=== PATIENT | female | born 1985 ===

== ENCOUNTER 2018-04-22 08:11 | Inpatient (IN) | payer MEDICAID, SELFPAY ==
[2016-11-27 10:01] VITALS: BMI 27.1
[~2018-04-22 08:11] MED LIST: Lactated Ringer's 1,000 ML IV ONE; ceFAZolin 1 GM in Sodium Chloride 0.9% 100 ML IVPB ONE
[2018-04-22] MEDS ORDERED: ceFAZolin IV 1 gm in Dextrose 1 GM/50 ML BAG IVPB ONE (08:30)
[2018-04-22 08:33] LABS: BASO % 0.5 % (0.0-2.0); EOS % 0.2 % (0.0-4.0); LYMPH # 1.4 K/uL (1.0-4.3); LYMPH % 15.3 % (20.0-40.0); MEAN CORPUSCULAR HEMOGLOBIN 28.9 pg (27.0-31.0); MEAN CORPUSCULAR HGB CONC 34.3 g/dL (33.0-37.0); MONO # 0.6 K/uL (0.0-0.8); MONO % 6.9 % (0.0-10.0); NEUT % 77.1 % (50.0-75.0); NRBC % 0.1 % (0.0-0.0); RBC 4.51 Mil/uL (3.80-5.20); WHITE BLOOD COUNT 9.1 K/uL (4.8-10.8)
[2018-04-22 08:34] LABS: MEAN CELL VOLUME 84.1 fl (81.0-99.0)
[2018-04-22] MEDS ORDERED: Oxytocin 30 UNIT 30 UNITS/500 ML BAG IV ONE (09:00)
[2018-04-22] MEDS ORDERED: OXYTOCIN/0.9 % NS 20 UNIT/1,000 ML BAG IV ONE (09:00)
[2018-04-22] MEDS ORDERED: Morphine 1 mg/ml preservative-free Inj(Duramorph) ONE (09:49)
[2018-04-22] MEDS ORDERED: ePHEDrine 50 mg/ml Inj ONE (10:03)
[2018-04-22] MEDS ORDERED: Phenylephrine 10 mg/ml Inj ONE (10:03)
[2018-04-22] MEDS ORDERED: Naloxone 0.4 mg/ml Inj (Adult) IVP PRN ×2 (10:52→14:19)
--- NOTE | 2018-04-22 11:37 | OBDS ---
DELIVERY PERSONNEL Delivery Doctor: Fabiola Griggs MD Scrub Nurse: Tricia Mejia Traffic Superintendent: Taylor Michael RN Anesthesiologist: Dr Davenport I MATERNAL INFORMATION Delivery Anesthesia: Spinal Medications in Delivery: Pitoin, ancef Placenta Cultured: No Maternal Complications: None Provider Comments: see operative report LABOR SUMMARY EDC: 04/29/2018 00:00 No. Babies in Womb: 1 Attempted: No Labor Anesthesia: Intrathecal LABOR INFORMATION Reason for Induction: Not Applicable Oxytocin: N/A Group B Beta Strep: Negative Steroids Given: None Reason Steroids Not Administered: Not Applicable MEMBRANES Membranes Rupture Method: Artificial Rupture of Membranes: 04/22/2018 10:33 Length of Rupture (hrs): 0.00 Amniotic Fluid Color: Clear Amniotic Fluid Amount: Moderate Amniotic Fluid Odor: None STAGES OF LABOR Stage 3 hrs: 0 Stage 3 min: 0 CSECTION DELIVERY Primary Indication: Repeat Elective Secondary Indication: Repeat Elective CSection Urgency: Elective CSection Incidence: Repeat Labor: No Labor Elective: Elective CSection Incision: Lower Uterine Transverse BABY A INFORMATION Infant Delivery Date/Time: 04/22/2018 10:33 Method of Delivery: Born in Route : No : N/A Forceps: N/A Vacuum Extraction: N/A Shoulder Dystocia : No SHOULDER DYSTOCIA BABY A Delivery Date/Time: 04/22/2018 10:33 PRESENTATION/POSITION BABY A Presentation: Cephalic Cephalic Presentation: Vertex Breech Presentation: N/A PLACENTA INFORMATION BABY A Placenta Delivery Time : 04/22/2018 10:33 Placenta Method of Delivery: Manual Removal Placenta Status: Delivered SCORES BABY A Heart Rate 1 min: >100 bpm Resp Effort 1 min: Good Cry Reflex Irritability 1 min: Cough or Sneeze or Pulls Away Muscle Tone 1 min: Active Motion Color 1 min: Body [place], Extremities Blue Resuscitation Effort 1 min: N/A SCORE 1 MIN: 9 Heart Rate 5 min: >100 bpm Resp Effort 5 min: Good Cry Reflex Irritability 5 min: Cough or Sneeze or Pulls Away Muscle Tone 5 min: Active Motion Color 5 min: Body [place], Extremities Blue Resuscitation Effort 5 min: N/A SCORE 5 MIN: 9 INFORMATION BABY A Gestational Age at Delivery: 39.0 Gestational Status: Term Outcome : Liveborn Infant Condition : Stable Sex: Male IDENTIFICATION/MEDS BABY A ID Band Number: [id number] ID Band Location: Left Leg; Left Arm WEIGHT/LENGTH BABY A Infant Birthweight (gms): 3680 Infant Weight (lb): 8 Infant Weight (oz): 2 CORD INFORMATION BABY A No. Cord Vessels: 3 Nuchal Cord : N/A Cord Blood Taken: Yes Suction: None ASSESSMENT BABY A Infant Complications: None Physical Findings at Delivery: Within Normal Limits Respirations: Appears Normal Filling Mixer/ALS Called : Yes Care By: Dr Dr Conrad Transferred To: Remains with Mother
--- NOTE | 2018-04-22 11:50 | OBADHP ---
Datetime: 04/22/2018 08:00 Admit Comment, IP Provider: 32-year-old at 39.0 weeks (confirmed with first tri U/S and LMP 08/01/17) presents for a scheduled repeat section. Her first resulted in a full-ter m C/S due to GDM at 38 weeks in 2009 which she tolerated well and recovered from without complication s (baby 8 lbs). Patient also has gestational DM this , controlled with diet and Metforming 5 00 BID. She reports good movement and denies contractions, veginal bleeding and loss of fluid. She recieved her prentatal care at [facility] [place]. Mother present bedside, will accompan y her in OR. OBHx: 2010 C/S at [facility] 38 wks d/t GDM, no complications, (baby weighed 8lbs) PMH: gestational DM - currently controlled with Metformin 500 BID and diet, sugar levels reviewed and WNL (morning levels roughly 100-110) Meds: Metformin 500mg BID - did not take morning of presentation for CS Allergies: denies FHx: denies SurgHx: C/S 2009 Labs: GBS neg, *no 3rd tri labs* RPR neg (10/2017), HIV neg (12/2017), HbsAg unknown, rubella unkn own, GC/CL unknown PE: comfortable, in no acute distress, pleasant CV: RRR Resp: no resp distress Abd: no tenderness to palpation Extremitiess: no pitting edema ROS: denies headache, dizziness, change in vision, nausea, vomiting, chest pain, shortness of micah th, constipation and diarrhea Assessment: 32-year-old at 39.0 weeks (confirmed with first tri U/S and LMP 08/01/17) prese nts for a scheduled repeat section. Plan: -Admit for CS protocol -IVF -Labs -Ancef 1gm -Continuous EFM Case discussed with Dr. Anson Perea, PGY1 [facility] Family Medicine Patient was seen with the resident I agree with the note Pelvic Type - PN: Not Done Extremities - PN: Normal Abdomen - PN: Normal Back - PN: Not Done Breast - PN: Not Done Lungs - PN: Normal Heart - PN: Normal Thyroid - PN: Not Done Neurologic - PN: Not Done HEENT - PN: Normal General - PN: Normal FHR - Baseline A Provider: 150 Vital Signs Provider: Reviewed; Within Normal Limits IP Chief Complaint: Scheduled Section NICHD Variability Prov Fetus A: Moderate 6-25bpm NICHD Accel Fetus A IP Provider: [id number] FHR Category Provider Fetus A: Category I NICHD Decel Fetus A IP Provider: None Genitourinary Exam: Not Done DTRs - PN: Not Done EGA AdmitDate IP: 39.0 IP Adm Impression: Term, intrauterine IP Admit Plan: Admit to unit; Initiate Section protocol
[2018-04-22] MEDS ORDERED: Oxycodone/Acetaminophen 5/325 mg Tab PO PRN (14:35)
--- NOTE | 2018-04-22 23:05 | OP ---
PROCEDURE DATE: 04/22/2018 PREOPERATIVE DIAGNOSES: Intrauterine at 39 weeks, history of previous delivery. POSTOPERATIVE DIAGNOSES: Intrauterine at 39 weeks, history of previous delivery. OPERATION PERFORMED: Repeat low-flap transverse section by Pfannenstiel skin incision with bilateral tubal ligation. SURGEON: Fermin Griggs MD BACK PANEL PADDER: Dr. Tia Self ANESTHESIA: Spinal. ANESTHESIA ADMINISTERED BY: Dr. Davenport. ESTIMATED BLOOD LOSS: 800 mL. URINE OUTPUT: Sheehan catheter put out approximately 400 mL of clear urine. INTRAVENOUS FLUID INTAKE: The patient received approximately 2 L of D5 LR intraoperatively. OPERATIVE FINDINGS: Baby boy, vertex presentation, Apgars 9 and 9, weighing 3680 g. Normal uterus, tubes, and ovaries were identified. DESCRIPTION OF PROCEDURE: After informed consent was obtained, the patient was taken to the operating room where she was given spinal anesthesia. She was then prepped and draped in a normal sterile fashion with a leftward tilt. A Pfannenstiel skin incision was then made with a scalpel, carried down to the underlying layer of fascia. The fascia was nicked in the midline. The fascial incision was then extended laterally with a curved Forrest scissors. The superior aspect of the fascial incision was then grasped with Aditya clamps, elevated up, and the rectus muscles were dissected off using both sharp and blunt dissection. Attention was then turned to the inferior aspect of the fascial incision, which in a similar fashion, was grasped with Aditya clamps, elevated up, and the rectus muscles were dissected off using both sharp and blunt dissection. The rectus muscles were then in the midline. The peritoneum was identified and entered sharply with Metzenbaum scissors. The peritoneal incision was then extended superiorly and inferiorly with good visualization of the bladder. A bladder blade was inserted. The vesicouterine peritoneum was identified and entered sharply with Metzenbaum scissors. The incision was extended laterally. The bladder flap was created digitally. The bladder blade was then readjusted, and a low transverse incision was made with the scalpel. The incision was then extended laterally using the bandage scissors. The 's head was then delivered atraumatically. The nose and mouth were suctioned with DeLee suction trap. The cord was clamped and cut. The infant was handed off to awaiting pediatricians. The placenta was then removed manually. The uterus was exteriorized and cleared of all clots and debris. The uterine incision was repaired with 0 Vicryl in a running-locked fashion. Second layer of the same suture was used to obtain excellent hemostasis. Attention was then turned to the right fallopian tube. It was grasped with the [place], elevated up and a knuckle tube was created. It was suture ligated with 2-0 chromic and then tied off with a free tie. The tube was then excised with the Metzenbaum scissors. The tubal stumps were cauterized with the Bovie. Similar procedure was performed on the left. Both specimens were sent to Pathology. The uterus was then returned to the abdomen. The abdomen was then copiously irrigated. The irrigant was removed with the suction device. The gutters were cleared of all clots and debris. The tubes were re-examined and noted to be hemostatic as well as the uterine incision. The peritoneum was then closed with a 2-0 Vicryl in a running fashion. The muscles were reapproximated with 0 Vicryl in an interrupted fashion. The fascia was closed with 0 Vicryl in a running fashion, and the skin was closed with 3-0 on a Marky needle. All sponge, lap, needle, and instrument counts were correct x2. The patient was taken to the recovery room in awake and stable condition. Fermin Griggs MD
[2018-04-23 07:07] LABS: MEAN CELL VOLUME 84.9 fl (81.0-99.0); RBC 3.93 Mil/uL (3.80-5.20); RED CELL DISTRIBUTION WIDTH 16.6 % (11.5-14.5); WHITE BLOOD COUNT 9.5 K/uL (4.8-10.8)
[2018-04-23] MEDS ORDERED: Multivitamin With Minerals Tab PO SCH (09:00)
[2018-04-23] MEDS: Multivitamin With Minerals Tab PO SCH (09:22)
[2018-04-23] MEDS: Hydrocortisone 2.5% (Rectal) CREAM PR SCH ×2 (09:36→16:45)
--- NOTE | 2018-04-24 07:43 | OBPPN ---
Datetime: 04/24/2018 05:49 PP Pain Prov: Within normal limits PP Nausea Prov: Denies PP Flatus Prov: Yes PP BM Prov: No PP Breasts Prov: Not Done PP Heart Prov: Normal PP Lungs Prov: Normal PP Abdomen/Uterus Prov: Normal PP Lochia Prov: Normal PP Vulva/Perineum Prov: Normal PP CVA Tenderness Prov: Not Done PP Extremities Prov: Normal PP C/S Incision Prov: Normal PP Progress Prov: Normal PP Impression Prov: Normal progression PP Plan Prov: Continue present management PP Progress Note Prov: with Bilateral tubal ligation POD2 S: 32 yo s/p NVD on 04/22/2018 at 10:33am. Pt. is seen and examined at bedside this AM. No significant overnight events. Pt reports occasional abdominal pain, but well controlled with pain me ds. Pt is ambulating without any difficulties. Breast feeding baby. Tolerating PO diet. Lochia is sim ilar to light menses in volume. Voiding freely, no bowel movement, but passing gas per rectum. Denies fever, chills, diarrhea, nausea, vomiting, chest pain, dyspnea, and dizziness. O: VS: stable GEN: NAD Cardio: S1S2, no M/G/R Resp: clear air entry bilaterally. Abdomen: BS+, Non-tender to palpation, Uterus is firm and at the level of the umbilicus. Clean, dr y, non-erythematous incision site. EXT: No edema, calves non-tender NEURO/PSYCHI: AAOx3 Assessment/Plan: 32 yo s/p NVD on 04/22/2018 at 10:33am. Pt remains afebrile, tolerating p ain with medication, tolerating PO intake, doing well on POD2. OOB with caution 1. SCDs for DVT prophylaxis, pt ambulating 2. Ibuprofen 600mg for pain and Percocet 3. Colace 100mg PO BID constipation 4. Encourage and ambulating 5. CBC post-delivery: 11.0/33.4 6. Anticipated d/c to home, 04/25/2018. --- Rina Jung MD PGY-1 OB Hospitalist Addendum: Pt seen and examined by me. Agree w/ above. POD 2 s/p repeat c/s, doing well, breast and bottle feeding. Continue current care. (ES) IP PP Procedures: None Vital Signs Provider PP: Reviewed; Within Normal Limits
[2018-04-24] MEDS: Multivitamin With Minerals Tab PO SCH (09:43)
[2018-04-24] MEDS: Hydrocortisone 2.5% (Rectal) CREAM PR SCH ×2 (09:46→16:30)
[2018-04-24] MEDS ORDERED: Oxycodone/Acetaminophen 5/325 mg Tab PO PRN (10:18)
[2018-04-24 17:13] LABS: RUBELLA AB (IGG) 11.5 index
[2018-04-25] MEDS: Hydrocortisone 2.5% (Rectal) CREAM PR SCH (09:00)
[2018-04-25] MEDS: Multivitamin With Minerals Tab PO SCH (09:16)
[2018-04-25 18:58] VITALS: BP 121/82; PULSE 95; RESP 18; TEMP 98.3; O2SAT 98
== END 2018-04-25 14:15 | disposition home or self-care (01) | DRG 371 ==
LOC: H.L&D 08:12 → H.OB/GYN 14:02
PROVIDERS: ADMIT Obstetrics & Gynecology Gynecology; ATTEND Obstetrics & Gynecology Gynecology
PROC: 10D00Z1 Extraction of Products of Conception, Low, Open Approach (ICD-10-PCS; principal; 2018-04-22)
PROC: 0UB70ZZ Excision of Bilateral Fallopian Tubes, Open Approach (ICD-10-PCS; 2018-04-22)
PROC: 4A1HXCZ Monitoring of Products of Conception, Cardiac Rate, External Approach (ICD-10-PCS; 2018-04-22)
DX: O34.211 Maternal care for low transverse scar from previous cesarean delivery (principal); N85.8 Other specified noninflammatory disorders of uterus; Z3A.39 39 weeks gestation of pregnancy; Z37.0 Single live birth; Z30.2 Encounter for sterilization; O24.420 Gestational diabetes mellitus in childbirth, diet controlled